=== PATIENT | male | born 1995 | race Hispanic/Latino ===

== ENCOUNTER 2017-05-08 14:07 | Emergency (ER) | payer OTHER ==
[~2017-05-08] VITALS: Ht 172.7 cm; Wt 72.7 kg
[2017-05-08] MEDS ORDERED: LIDOCAINE W/EPINEPHRINE 1% 20ML VIAL SC ONE (15:15)
[2017-05-08] MEDS ORDERED: LIDOCAINE W/EPINEPHRINE 1% 20ML VIAL As Ordered ONE (15:16)
--- NOTE | 2017-05-08 15:20 | REP ---
Head CT without contrast: History: Trauma Comparison study: No comparison. CT findings: Bone window settings demonstrate an intact bony calvarium. There is no evidence of skull fracture or incidental bony calvarial lesion. The visualized paranasal sinuses appear clear. No intraorbital abnormality is seen. On soft tissue window setting images; the lateral, third, and fourth ventricles are normal in size and position. West-white differentiation pattern is normal above and below the tentorium. There are is no evidence of intracranial hemorrhage. No mass, edema, infarction, or midline shift is seen. No extra-axial fluid collection is appreciated. Impression: Negative noncontrast head CT. Signed by Gregorio Abdalla MD 05/08/2017 03:11 P
--- NOTE | 2017-05-08 15:32 | REP ---
MAXILLOFACIAL CT WITHOUT CONTRAST: HISTORY: Trauma. The sinuses are clear. The osteomeatal units are patent. The middle and inferior nasal turbinates are partially paradoxical. There is elisabet bullosa of the middle nasal turbinates. There is minimal deviation of the nasal septum to the right superiorly and to the left inferiorly. A spur is present arising from the left side of the nasal septum. The spur abuts the left inferior nasal turbinate. The cribriform plate, medial pelaez of the orbits and optic canals are intact. The carotid canals form a segment of the posterolateral pelaez of the sphenoid sinus. There is no fracture. IMPRESSION: There is no acute or chronic sinusitis. Signed by Malcom Medrano MD 05/08/2017 03:43 P
[2017-05-08] MEDS ORDERED: ANEXSIA, NORCO 7.5MG/325MG TABLET(HYDROCODONE/APAP) PO ONE (16:00)
[2017-05-08] MEDS ORDERED: NORCO 5/325MG TABLET (BULK FOR ED) PO ONE (16:00)
[2017-05-08 16:15] VITALS: BP 135/67
== END 2017-05-08 16:17 | disposition home or self-care (01) ==
LOC: M ED 14:07
DX: S01.112S Laceration without foreign body of left eyelid and periocular area, sequela (principal); S06.0X0A Concussion without loss of consciousness, initial encounter; W20.8XXA Other cause of strike by thrown, projected or falling object, initial encounter; Y92.84 Military training ground as the place of occurrence of the external cause; Y93.89 Activity, other specified; Y99.1 Military activity

== ENCOUNTER 2017-05-16 06:46 | Emergency (ER) | payer OTHER ==
[~2017-05-16] VITALS: Ht 172.7 cm; Wt 77.3 kg
[2017-05-16] MEDS ORDERED: METOCLOPRAMIDE 10 MG TAB PO ONE (07:15)
[2017-05-16] MEDS ORDERED: REGL10TA6 PO (07:50)
--- NOTE | 2017-05-16 07:50 | REP ---
Clinical: Headache with recent trauma . Comparison: 05/08/2017 . Findings: The ventricles, sulci, and cisterns are normal in position and appearance. West-white differentiation is maintained. No acute intracranial hemorrhage, mass/mass effect, pathology or trauma/injury. No evidence for acute infarction. No extra-axial fluid collection. Calvarium is intact. Paranasal sinuses and mastoid air cells are clear. Impression: Normal noncontrast head CT. No evidence for acute intracranial pathology or trauma/injury. Signed by Fernie Sanchez MD 05/16/2017 07:42 A
[2017-05-16 08:01] VITALS: BP 115/71
== END 2017-05-16 08:05 | disposition home or self-care (01) ==
LOC: M ED 06:46
DX: R51 Headache (principal); S09.90XA Unspecified injury of head, initial encounter; X58.XXXA Exposure to other specified factors, initial encounter; Y92.89 Other specified places as the place of occurrence of the external cause; Y93.89 Activity, other specified; Y99.8 Other external cause status